=== PATIENT | female | born 1995 | race African-American/Black ===

== ENCOUNTER 2017-03-14 16:45 | Emergency (ER) | payer OTHER, MEDICAID ==
[~2017-03-14] VITALS: Ht 167.6 cm; Wt 96.0 kg
[2017-03-14 16:46] VITALS: BP 134/84
== END 2017-03-14 20:30 | disposition left against medical advice (07) ==
LOC: ER 17:07
DX: Z53.21 Procedure and treatment not carried out due to patient leaving prior to being seen by health care provider (principal)